=== PATIENT | female | born 1950 | race Caucasian/White ===

== ENCOUNTER 2022-12-06 12:26 | Inpatient (IN) ==
[2022-12-06 13:13] LABS: POC Calcium, Ionized 1.3 (1.16-1.32); POC Creatinine 1.3 (0.6-1.2); POC Potassium 4.7 (3.3-5.1)
--- NOTE | 2022-12-06 13:19 | XRay Report ---
CLINICAL INFORMATION: Dyspnea COMPARISON: 04/07/2020 TECHNIQUE: Portable FINDINGS: The heart size, mediastinum and pulmonary vessels are unremarkable. Mild right basilar atelectasis noted.. There are no effusions. The bones and soft tissues are within normal limits. IMPRESSION: Mild right basilar atelectasis. Interpreted and Authenticated by: Hector Rueda 12/06/22
[2022-12-06] MEDS ORDERED: methylPREDNISolone SOD SUCC 125 MG/2 ML VIAL IV ONE (13:49)
--- NOTE | 2022-12-06 13:53 | Emergency Department Note ---
SOB HPI General Chief Complaint: Shortness of Breath/Dyspnea Stated Complaint: shortness of breath Time Seen by Provider: 12/06/22 12:47 Source: patient and EMS Mode of arrival: EMS Limitations: no limitations History of Present Illness HPI Narrative: 72-year-old female with history of COPD on nocturnal oxygen, FREDDIE, ongoing tobacco use, chronic pain on methadone 60 mg a day, T2DM, CKD stage IV, peripheral vascular disease on clopidogrel, hypertension, bipolar/anxiety disorder presents to the ER via EMS for acute shortness of breath. The patient states that she was cleaning her home with bleach and Lysol and inhaled fumes and became immediately short of breath. She met EMS out in her driveway where her saturations were noted to be in the mid 80s. They gave her [address] DuoNeb treatments [address] way over and she is feeling only slightly improved. Patient states that she takes a daily inhaler twice a day plus as needed albuterol as her home inhaler use. She denies worsening cough, fever/chills/sweats. States that she was feeling well up until this morning when she had exposure to the cleaning agents. Related Data Home Medications Medication Instructions Recorded Confirmed clopidogrel 75 mg tablet 75 mg PO HS 04/15/15 12/06/22 levothyroxine 25 mcg tablet 25 mcg PO DAILY 04/15/15 12/06/22 (Levoxyl) alprazolam 0.25 mg tablet 1 mg PO BID 10/22/21 12/06/22 atorvastatin 20 mg tablet 20 mg PO HS 10/22/21 12/06/22 exenatide microspheres 2 mg/0.85 2 mg subcut QWEEK 10/22/21 12/06/22 mL subcutaneous auto-injector (Cristal Cristobal) metformin 500 mg tablet 1,500 mg PO 1700 10/22/21 12/06/22 telmisartan 40 mg tablet 20 mg PO 1700 10/22/21 12/06/22 cholecalciferol (vitamin D3) 50 50 mcg PO QDAY 07/15/22 12/06/22 mcg (2,000 unit) capsule (Vitamin D3) metformin 500 mg tablet 500 mg PO QDAY 07/15/22 12/06/22 quetiapine 25 mg tablet 150 mg PO QHS 07/21/22 12/06/22 budesonide 160 mcg-glycopyr 9 2 inh inhalation BID 10/21/22 12/06/22 mcg-formot 4.8 mcg/actuation HFA inhaler (Breztri Aerosphere) lamotrigine 200 mg tablet 200 mg PO BID 12/06/22 12/06/22 (Lamictal) Previous Rx's Medication Instructions Recorded fluticasone propionate 50 1 spray intranasal BID #16 grams 07/21/22 mcg/actuation nasal spray,suspension (Flonase Allergy Relief) ipratropium 0.5 mg-albuterol 3 mg 3 ml inhalation Q6H PRN shortness 07/21/22 (2.5 mg base)/3 mL nebulization of breath or wheezing #180 mL soln albuterol sulfate 90 mcg/actuation 2 puff inhalation QID PRN 10/21/22 aerosol inhaler shortness of breath or wheezing #8.5 grams methadone 10 mg tablet 20 mg PO TID #42 tabs 11/29/22 naloxone 4 mg/actuation nasal spray 1 spray intranasal .COMPLEX #2 ea 11/29/22 pregabalin 75 mg capsule See Rx Instructions PO BID #21 caps 11/29/22 Allergies Allergy/AdvReac Type Severity Reaction Status Date / Time olanzapine [From Zyprexa] Allergy Intermediate Unknown Verified 12/06/22 12:34 aspirin Allergy Mild Unknown Verified 12/06/22 12:34 cimetidine [From Tagamet] Allergy Mild Unknown Verified 12/06/22 12:34 codeine Allergy Mild Unknown Verified 12/06/22 12:34 misoprostol [From Cytotec] Allergy Mild Unknown Verified 12/06/22 12:34 NSAIDS (Non-Steroidal Allergy Mild Unknown Verified 12/06/22 12:34 Anti-Inflamma Oxaprozin [From Daypro] Allergy Mild Unknown Verified 12/06/22 12:34 Review of Systems ROS ROS Narrative: Narrative: All systems ED: reviewed and negative except as stated. PFSH Narrative Patient History Narrative: Narrative: Medical/Surgical/Family History All Active Problems (Updated 12/07/22 @ 03:50 by Lisset Jackson PA-C) Community acquired pneumonia (Acute) Acute exacerbation of chronic obstructive pulmonary disease (Acute) Hypoxia (Acute) Cough (Acute) History of vocal cord polypectomy (Chronic) Diabetic neuropathy (Acute) Chronic pain (Acute) Total knee replacement status (Acute) Rhinorrhea (Chronic) Rhinitis (Acute) COPD (chronic obstructive pulmonary disease) (Chronic) Atelectasis of right lung (Chronic) Elevated hemidiaphragm (Chronic) Shortness of breath (Chronic) Pulmonary collapse (Chronic) Pneumonia (Chronic) Admission for long-term (current) use of antiplatelets/antithrombotics (Chronic) Tobacco use (Chronic) Other constipation (Chronic) Onychomycosis (Chronic) Callus of foot (Chronic) Hallux valgus, bilateral (Chronic) Hyperkeratosis (Chronic) Bone spur of left foot (Chronic) Other instability, right foot (Chronic) Hammertoe (Chronic) Plantar flexed metatarsal (Chronic) Primary osteoarthritis, left ankle and foot (Chronic) Instability of right ankle joint (Chronic) Generalized anxiety disorder (Chronic) 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) Bipolar disorder, current episode depressed, moderate (Chronic) PVD (peripheral vascular disease) (Chronic) Vitamin D deficiency (Chronic) Pain in right shoulder (Chronic) Pain in joint of left knee (Chronic) Osteopenia (Chronic) Tardive dyskinesia (Chronic) Pain in right knee (Chronic) Fatty infiltration of liver (Chronic) FREDDIE (obstructive sleep apnea) (Chronic) Asthma (Chronic) Allergic rhinitis (Chronic) Bronchitis, mucopurulent recurrent (Chronic) Hypothyroidism (Chronic) Hyperlipemia, mixed (Chronic) Chronic kidney disease, stage 3a (Chronic) Hypertensive chronic kidney disease with stage 1 through stage 4 chronic kidney disease, or unspecified chronic kidney disease (Chronic) DM (diabetes mellitus), type 2 with peripheral vascular complications (Chronic) DM (diabetes mellitus), type 2 with renal complications (Chronic) Type 2 diabetes mellitus with diabetic polyneuropathy (Chronic) Other obesity due to excess calories (Chronic) Atherosclerosis of aorta (Chronic) Lumbosacral radiculopathy (Chronic) Radiculopathy of lumbar region (Chronic) Closed rib fracture (Chronic) Epistaxis (Chronic) Fracture of phalanx of great toe (Chronic) Cellulitis (Chronic) Absence seizure (Chronic) Spinal stenosis, lumbar (Chronic) care home (current) use of opiate analgesic (Chronic) Chronic pain (Chronic) Spondylosis without myelopathy or radiculopathy, lumbar region (Chronic) Radiculopathy, lumbar region (Chronic) Accidental drug ingestion (Chronic) Laceration of right forearm (Chronic) Medical History Absence seizure Accidental drug ingestion Admission for long-term (current) use of antiplatelets/antithrombotics Allergic rhinitis Asthma Atherosclerosis of aorta Bipolar disorder, current episode depressed, moderate Bone spur of left foot Bronchitis, mucopurulent recurrent Callus of foot Cellulitis Chronic kidney disease, stage 3a Chronic pain Closed rib fracture COPD (chronic obstructive pulmonary disease) Diabetic neuropathy DM (diabetes mellitus), type 2 with peripheral vascular complications DM (diabetes mellitus), type 2 with renal complications Epistaxis Fatty infiltration of liver Fracture of phalanx of great toe Generalized anxiety disorder Hallux valgus, bilateral Hammertoe Hyperkeratosis Hyperlipemia, mixed Hypertensive chronic kidney disease with stage 1 through stage 4 chronic kidney disease, or unspecified chronic kidney disease Hypothyroidism Instability of right ankle joint Laceration of right forearm care home (current) use of opiate analgesic Lumbosacral radiculopathy Onychomycosis FREDDIE (obstructive sleep apnea) Osteopenia Other constipation Other instability, right foot Other obesity due to excess calories 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 Pain in joint of left knee Pain in right knee Pain in right shoulder Plantar flexed metatarsal Pneumonia Primary osteoarthritis, left ankle and foot Pulmonary collapse PVD (peripheral vascular disease) Radiculopathy of lumbar region Radiculopathy, lumbar region Spinal stenosis, lumbar Spondylosis without myelopathy or radiculopathy, lumbar region Tardive dyskinesia Tobacco use Type 2 diabetes mellitus with diabetic polyneuropathy Vitamin D deficiency Surgical History History of arthroscopy of left knee History of cholecystectomy History of foot surgery Bilateral x7 History of myomectomy History of surgery LESI #2 L4-5 w/sed 05/24/2017 LESI #1 L4-5 w/sed 04/19/2017 History of vocal cord polypectomy (~2016) Family History Father Esophageal cancer Sister Colon cancer Grandfather Lung cancer Social History Smoking Status: Current every day smoker Alcohol Intake Frequency: does not drink Substance Use: does not use Exam Narrative Narrative: General: AOx3, NAD, nontoxic appearing. Pleasant and conversant. HEENT: Pupils are pinpoint, EOMI, normocephalic. Dry mucous membranes. Normal facies and edentulous. Chest: Symmetric, no pain to palpation Respiratory: Lungs with coarse breath sounds throughout. No crackles. No wheezes. No respiratory distress. Unlabored breathing. Heart: Regular rate and rhythm, no murmurs/clicks/rubs. Abdomen: Non-tender, Non distended Extremities: Warm and well perfused. No edema. DP 2+ bilaterally. No venous stasis. Neuro: No focal deficits. Cranial nerves II-XII grossly normal. Skin: Warm dry, no rashes or lesions, no cyanosis. Psych: Intoxicated mood and affect Heme/Lymph: Multiple bruises on the upper extremities and lower extremities. General Limitations: no limitations Course Course Course Narrative: 72-year-old female with history of COPD presents for hypoxia and shortness of breath. Reevaluation(s) Reevaluation #1: Obtain basic labs, chest x-ray DuoNebs as needed Supplemental O2 62.5 mg IV methylprednisolone x1 dose Check EKG Reevaluation #2: EKG shows sinus rhythm with a rate of 95 bpm. Patient has a lot of motion artifact. No obvious acute ST segment elevations to suggest acute coronary syndrome. QTc is 463 ms. Normal LA interval of 163 ms. White blood cell count is 19,200 with absolute neutrophil count of 16.58. Chest x-ray shows right lower lobe opacity that is read as atelectasis. No clear infiltrate. Procalcitonin 0.06. Time: 17:00 Reevaluation #3: Called to the bedside as patient was insisting on leaving to have a cigarette. She was uncooperative and refusing to put on her oxygen. She was extremely unsteady on her feet and oxygen saturations were 81% on room air. Patient th reatened to leave AMA and was walking out in her hospital gown with her IV in place. She was undeterrable, and for patient's safety I agreed to allow her to have a cigarette before her admission and accompanied her outside for safety. The patient subsequently became cooperative and agreeable to stay for admission. Additional Reevaluation(s): Patient is amendable to nicotine gum and patches Vital Signs Vital signs: Vital Signs Temperature 98.6 F 12/06/22 12:28 Pulse Rate 99 H 12/06/22 12:28 Respiratory Rate 20 12/06/22 12:28 Pulse Oximetry (%) 87 L 12/06/22 12:28 Oxygen Delivery Method Room Air 12/06/22 12:28 Temperature 97.4 F 12/06/22 20:02 Pulse Rate 74 12/07/22 00:04 Respiratory Rate 20 12/07/22 00:04 Blood Pressure 104/48 12/07/22 00:04 Pulse Oximetry (%) 91 12/07/22 00:04 Oxygen Delivery Method Oxymask 12/07/22 00:04 Oxygen Flow Rate (L/min) 3 12/07/22 00:04 MDM MDM Narrative Medical decision making narrative: Acute hypoxic respiratory failure Community acquired pneumonia Acute COPD exacerbation Tobacco use disorder Covid and influenza are negative. She was given IV ceftriaxone and oral 500 mg azithromycin as well as 62.5 mg IV methylprednisone. Supplemental O2 to keep sats >92%. I asked her to bring in her home inhaler and her methadone. She is agreeable to admission with the understanding that she cannot vape or smoke. Poison control was contacted and they have no additional recommendations to her current interventions. She has been accepted for admission. Thank you Dr. Vasquez. Lab Data 12/06/22 13:33 Labs: Lab Results 12/06/22 12/06/22 12/06/22 Range/Units 13:09 13:33 14:27 WBC 19.2 H (4.5-11.0) K/mcL RBC 4.26 (3.59-5.38) M/mcL Hgb 12.7 (11.2-15.7) g/dL Hct 39.8 (34.1-44.9) % POC Hct 40.0 (36-48) MCV 93.4 (80.0-100.0) fL MCH 29.8 (26.0-34.0) pg MCHC 31.9 (31.0-36.0) g/dL RDW 15.0 H (11.5-14.5) % Plt Count 263 (140-440) K/mcL MPV 9.5 (8.8-12.5) fL Immature Gran % (Auto) 0.9 H (0.0-0.5) % Neut % (Auto) 86.6 H (38.0-78.0) % Lymph % (Auto) 6.5 L (15.5-49.0) % [place] % (Auto) 4.7 (1.0-12.0) % Eos % (Auto) 0.5 (0.0-7.0) % Baso % (Auto) 0.8 (0.0-2.0) % Lymph # (Auto) 1.24 L (1.50-4.80) K/mcL [place] # (Auto) 0.91 H (0.10-0.90) K/mcL Eos # (Auto) 0.10 (0.00-0.70) K/mcL Baso # (Auto) 0.16 (0.00-0.30) K/mcL Immature Gran # 0.18 H (0.00-0.05) K/mcl Absolute Neutrophils 16.58 H (1.80-8.00) K/mcL POC VBG pH 7.28 L (7.32-7.42) POC VBG pCO2 at Temp 57.7 H (41-51) POC VBG pO2 55 H (25-40) POC VBG HCO3 26.9 (24-28) POC VBG Total CO2 29.0 (25-29) POC Venous O2 Sat 83.0 H (40-70) POC VBG Base Excess 0 (-2-2) VBG Lactic Acid 1.0 (0.5-2) POC Sodium 139 (133-145) POC Potassium 4.7 (3.3-5.1) POC Chloride 101 (96-108) POC Total CO2 29.0 (22-30) POC BUN 27 H (6-20) POC Creatinine 1.3 H (0.6-1.2) POC Glucose 285 H (70-105) POC WB Ioniz Calcium 1.30 (1.16-1.32) Procalcitonin (<0.10) ng/mL 12/06/22 Range/Units 15:00 WBC (4.5-11.0) K/mcL RBC (3.59-5.38) M/mcL Hgb (11.2-15.7) g/dL Hct (34.1-44.9) % POC Hct (36-48) MCV (80.0-100.0) fL MCH (26.0-34.0) pg MCHC (31.0-36.0) g/dL RDW (11.5-14.5) % Plt Count (140-440) K/mcL MPV (8.8-12.5) fL Immature Gran % (Auto) (0.0-0.5) % Neut % (Auto) (38.0-78.0) % Lymph % (Auto) (15.5-49.0) % [place] % (Auto) (1.0-12.0) % Eos % (Auto) (0.0-7.0) % Baso % (Auto) (0.0-2.0) % Lymph # (Auto) (1.50-4.80) K/mcL [place] # (Auto) (0.10-0.90) K/mcL Eos # (Auto) (0.00-0.70) K/mcL Baso # (Auto) (0.00-0.30) K/mcL Immature Gran # (0.00-0.05) K/mcl Absolute Neutrophils (1.80-8.00) K/mcL POC VBG pH (7.32-7.42) POC VBG pCO2 at Temp (41-51) POC VBG pO2 (25-40) POC VBG HCO3 (24-28) POC VBG Total CO2 (25-29) POC Venous O2 Sat (40-70) POC VBG Base Excess (-2-2) VBG Lactic Acid (0.5-2) POC Sodium (133-145) POC Potassium (3.3-5.1) POC Chloride (96-108) POC Total CO2 (22-30) POC BUN (6-20) POC Creatinine (0.6-1.2) POC Glucose (70-105) POC WB Ioniz Calcium (1.16-1.32) Procalcitonin 0.06 (<0.10) ng/mL ED POC Tests ED POC Tests: MG - Influenza A Negative MG - Influenza B Negative MG - SARS Antigen Negative Discharge Plan Patient/Caregiver Discharge Instructions Pt seen by DISTRICT SERVICE MANAGER/PA only: Yes Clinical Impression: Community acquired pneumonia, Acute exacerbation of chronic obstructive pulmonary disease, Hypoxia Patient Disposition: Xfer As Inpt ([facility]) Discharge Date/Time: 12/06/22 19:30
[2022-12-06 14:03] LABS: Basophils # (Auto) 0.16 K/mcL (0.00-0.30); Basophils % (Auto) 0.8 % (0.0-2.0); Eosinophils % (Auto) 0.5 % (0.0-7.0); Hematocrit 39.8 % (34.1-44.9); Hemoglobin 12.7 g/dL (11.2-15.7); Lymphocytes # (Auto) 1.24 K/mcL (1.50-4.80); Lymphocytes % (Auto) 6.5 % (15.5-49.0); Mean Cell Volume 93.4 fL (80.0-100.0); Mean Corpuscular HGB Conc 31.9 g/dL (31.0-36.0); Mean Platelet Volume 9.5 fL (8.8-12.5); Monocytes # (Auto) 0.91 K/mcL (0.10-0.90); Monocytes % (Auto) 4.7 % (1.0-12.0); Neutrophils % (Auto) 86.6 % (38.0-78.0); Platelet Count 263 K/mcL (140-440); RBC 4.26 M/mcL (3.59-5.38); WBC 19.2 K/mcL (4.5-11.0)
[2022-12-06] MEDS ORDERED: cefTRIAXone 1 GM VIAL IV ONE (15:38)
[2022-12-06] MEDS ORDERED: AZITHROMYCIN 250 MG TABLET PO ONE (15:40)
[2022-12-06] MEDS ORDERED: IPRATROPIUM/ALBUTEROL 3 ML AMPUL.NEB NEB ONE ×2 (15:52→20:13)
--- NOTE | 2022-12-06 17:51 | Internal Med History&Physical ---
HPI History of Present Illness Patient information: Note initiated : 12/06/22 at 5:51 pm Service Date, if different from initiated Date: [] Patient: Alex Clancy a 72 y/o F admitted on for shortness of breath. Chief Complaint: [] Chief complaint: SOB History of present illness: Ms. Clancy is a 72 year old F with COPD on home O2, FREDDIE with CPAP, on chronically large doses of methadone, psychiatric illness, DM. She presented with SOB. Workup in the ER notable for WBC 19, wheezing, CXR with basilar infiltrate. Pt was given steroids, NBT, Abx. Admission was requested. Constitutional Constitutional: Present as per HPI EENT Eyes: Present as per HPI Cardiovascular Cardiovascular: Present as per HPI Respiratory Respiratory: Present as per HPI Gastrointestinal Gastrointestinal: Present as per HPI Genitourinary Genitourinary: Present as per HPI Musculoskeletal Musculoskeletal: Present as per HPI Integumentary Integumentary: Present as per HPI Neurological Neurological: Present as per HPI PFSH PFSH All Active Problems Cough (Acute) History of vocal cord polypectomy (Chronic) Diabetic neuropathy (Acute) Chronic pain (Acute) Total knee replacement status (Acute) Rhinorrhea (Chronic) Rhinitis (Acute) COPD (chronic obstructive pulmonary disease) (Chronic) Atelectasis of right lung (Chronic) Elevated hemidiaphragm (Chronic) Shortness of breath (Chronic) Pulmonary collapse (Chronic) Pneumonia (Chronic) Admission for long-term (current) use of antiplatelets/antithrombotics (Chronic) Tobacco use (Chronic) Other constipation (Chronic) Onychomycosis (Chronic) Callus of foot (Chronic) Hallux valgus, bilateral (Chronic) Hyperkeratosis (Chronic) Bone spur of left foot (Chronic) Other instability, right foot (Chronic) Hammertoe (Chronic) Plantar flexed metatarsal (Chronic) Primary osteoarthritis, left ankle and foot (Chronic) Instability of right ankle joint (Chronic) Generalized anxiety disorder (Chronic) 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) Bipolar disorder, current episode depressed, moderate (Chronic) PVD (peripheral vascular disease) (Chronic) Vitamin D deficiency (Chronic) Pain in right shoulder (Chronic) Pain in joint of left knee (Chronic) Osteopenia (Chronic) Tardive dyskinesia (Chronic) Pain in right knee (Chronic) Fatty infiltration of liver (Chronic) FREDDIE (obstructive sleep apnea) (Chronic) Asthma (Chronic) Allergic rhinitis (Chronic) Bronchitis, mucopurulent recurrent (Chronic) Hypothyroidism (Chronic) Hyperlipemia, mixed (Chronic) Chronic kidney disease, stage 3a (Chronic) Hypertensive chronic kidney disease with stage 1 through stage 4 chronic kidney disease, or unspecified chronic kidney disease (Chronic) DM (diabetes mellitus), type 2 with peripheral vascular complications (Chronic) DM (diabetes mellitus), type 2 with renal complications (Chronic) Type 2 diabetes mellitus with diabetic polyneuropathy (Chronic) Other obesity due to excess calories (Chronic) Atherosclerosis of aorta (Chronic) Lumbosacral radiculopathy (Chronic) Radiculopathy of lumbar region (Chronic) Closed rib fracture (Chronic) Epistaxis (Chronic) Fracture of phalanx of great toe (Chronic) Cellulitis (Chronic) Absence seizure (Chronic) Spinal stenosis, lumbar (Chronic) 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) Chronic pain (Chronic) Spondylosis without myelopathy or radiculopathy, lumbar region (Chronic) Radiculopathy, lumbar region (Chronic) Accidental drug ingestion (Chronic) Laceration of right forearm (Chronic) Medical History Absence seizure Accidental drug ingestion Admission for long-term (current) use of antiplatelets/antithrombotics Allergic rhinitis Asthma Atherosclerosis of aorta Bipolar disorder, current episode depressed, moderate Bone spur of left foot Bronchitis, mucopurulent recurrent Callus of foot Cellulitis Chronic kidney disease, stage 3a Chronic pain Closed rib fracture COPD (chronic obstructive pulmonary disease) Diabetic neuropathy DM (diabetes mellitus), type 2 with peripheral vascular complications DM (diabetes mellitus), type 2 with renal complications Epistaxis Fatty infiltration of liver Fracture of phalanx of great toe Generalized anxiety disorder Hallux valgus, bilateral Hammertoe Hyperkeratosis Hyperlipemia, mixed Hypertensive chronic kidney disease with stage 1 through stage 4 chronic kidney disease, or unspecified chronic kidney disease Hypothyroidism Instability of right ankle joint Laceration of right forearm intermediate (current) use of opiate analgesic Lumbosacral radiculopathy Onychomycosis FREDDIE (obstructive sleep apnea) Osteopenia Other constipation Other instability, right foot Other obesity due to excess calories 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 Pain in joint of left knee Pain in right knee Pain in right shoulder Plantar flexed metatarsal Pneumonia Primary osteoarthritis, left ankle and foot Pulmonary collapse PVD (peripheral vascular disease) Radiculopathy of lumbar region Radiculopathy, lumbar region Spinal stenosis, lumbar Spondylosis without myelopathy or radiculopathy, lumbar region Tardive dyskinesia Tobacco use Type 2 diabetes mellitus with diabetic polyneuropathy Vitamin D deficiency Surgical History History of arthroscopy of left knee History of cholecystectomy History of foot surgery Bilateral x7 History of myomectomy History of surgery LESI #2 L4-5 w/sed 05/24/2017 LESI #1 L4-5 w/sed 04/19/2017 History of vocal cord polypectomy (~2016) Family History Father Esophageal cancer Sister Colon cancer Grandfather Lung cancer Social History marital status: occupational status: disabled physical activity: walking frequency: 3-4 times per week smoking status: Current every day smoker alcohol intake frequency: does not drink substance use type: does not use MEDS/ALLERGIES Home Medications and Allergies Home Medications Medication Instructions Recorded Confirmed Type clopidogrel 75 mg tablet 75 mg PO DAILY 04/15/15 11/29/22 History levothyroxine 25 mcg tablet 25 mcg PO DAILY 04/15/15 11/29/22 History (Levoxyl) alprazolam 0.25 mg tablet 1 mg PO BID 10/22/21 11/29/22 History atorvastatin 20 mg tablet 20 mg PO HS 10/22/21 11/29/22 History exenatide microspheres 2 mg/0.85 2 mg subcut QWEEK 10/22/21 11/29/22 History mL subcutaneous auto-injector (Cristal Cristobal) metformin 500 mg tablet 1,500 mg PO 1700 10/22/21 11/29/22 History telmisartan 40 mg tablet 20 mg PO 1700 10/22/21 11/29/22 History cholecalciferol (vitamin D3) 50 50 mcg PO QDAY 07/15/22 11/29/22 History mcg (2,000 unit) capsule (Vitamin D3) lamotrigine 150 mg tablet 150 mg PO BID 07/15/22 11/29/22 History (Lamictal) metformin 500 mg tablet 500 mg PO QDAY 07/15/22 11/29/22 History fluticasone propionate 50 1 spray intranasal BID #16 grams 07/21/22 11/29/22 Rx mcg/actuation nasal spray,suspension (Flonase Allergy Relief) ipratropium 0.5 mg-albuterol 3 mg 3 ml inhalation Q6H PRN shortness 07/21/22 11/29/22 Rx (2.5 mg base)/3 mL nebulization of breath or wheezing #180 mL soln quetiapine 25 mg tablet 150 mg PO QDAY 07/21/22 11/29/22 History docusate sodium 100 mg capsule 100 mg PO BID #60 caps 07/22/22 11/29/22 Rx albuterol sulfate 90 mcg/actuation 2 puff inhalation QID PRN 10/21/22 11/29/22 Rx aerosol inhaler shortness of breath or wheezing #8.5 grams budesonide 160 mcg-glycopyr 9 2 inh inhalation BID 10/21/22 11/29/22 History mcg-formot 4.8 mcg/actuation HFA inhaler (Breztri Aerosphere) Wedge Pllow #1 ea 10/23/22 11/29/22 Rx methadone 10 mg tablet 20 mg PO TID #42 tabs 11/29/22 11/29/22 Rx naloxone 4 mg/actuation nasal spray 1 spray intranasal .COMPLEX #2 ea 11/29/22 11/29/22 Rx pregabalin 75 mg capsule See Rx Instructions PO BID #21 caps 11/29/22 11/29/22 Rx Allergies Allergy/AdvReac Type Severity Reaction Status Date / Time olanzapine [From Zyprexa] Allergy Intermediate Unknown Verified 12/06/22 12:34 aspirin Allergy Mild Unknown Verified 12/06/22 12:34 cimetidine [From Tagamet] Allergy Mild Unknown Verified 12/06/22 12:34 codeine Allergy Mild Unknown Verified 12/06/22 12:34 misoprostol [From Cytotec] Allergy Mild Unknown Verified 12/06/22 12:34 NSAIDS (Non-Steroidal Allergy Mild Unknown Verified 12/06/22 12:34 Anti-Inflamma Oxaprozin [From Daypro] Allergy Mild Unknown Verified 12/06/22 12:34 EXAM Constitutional Vitals: Temp Pulse Resp BP Pulse Ox O2 Del Method O2 Flow Rate 98.6 F 88 20 139/82 91 Nasal Cannula 1 12/06/22 12:28 12/06/22 15:55 12/06/22 12:28 12/06/22 15:37 12/06/22 15:55 12/06/22 13:15 12/06/22 13:15 General appearance: no acute distress Head Head exam: Present atraumatic, normal inspection and normocephalic ENT ENT exam: Present mucous membranes moist Respiratory Respiratory exam: Present decreased breath sounds and wheezes Cardiovascular Cardiovascular exam: Present normal rate and rhythm GI/Abdominal GI/Abdominal exam: Present normal bowel sounds and soft; Absent distended Neurological Exam Neurological exam: Present CN II-XII intact and oriented X3 DATA Data Completed and Pending Labs: Labs from last 24 hours 12/06/22 12/06/22 12/06/22 15:00 14:27 13:33 WBC 19.2 H RBC 4.26 Hgb 12.7 Hct 39.8 POC Hct MCV 93.4 MCH 29.8 MCHC 31.9 RDW 15.0 H Plt Count 263 MPV 9.5 Immature Gran % (Auto) 0.9 H Neut % (Auto) 86.6 H Lymph % (Auto) 6.5 L [place] % (Auto) 4.7 Eos % (Auto) 0.5 Baso % (Auto) 0.8 Lymph # (Auto) 1.24 L [place] # (Auto) 0.91 H Eos # (Auto) 0.10 Baso # (Auto) 0.16 Immature Gran # 0.18 H Absolute Neutrophils 16.58 H POC VBG pH 7.28 L POC VBG pCO2 at Temp 57.7 H POC VBG pO2 55 H POC VBG HCO3 26.9 POC VBG Total CO2 29.0 POC Venous O2 Sat 83.0 H POC VBG Base Excess 0 VBG Lactic Acid 1.0 POC Sodium POC Potassium POC Chloride POC Total CO2 POC BUN POC Creatinine POC Glucose POC WB Ioniz Calcium Procalcitonin 0.06 12/06/22 13:09 WBC RBC Hgb Hct POC Hct 40.0 MCV MCH MCHC RDW Plt Count MPV Immature Gran % (Auto) Neut % (Auto) Lymph % (Auto) [place] % (Auto) Eos % (Auto) Baso % (Auto) Lymph # (Auto) [place] # (Auto) Eos # (Auto) Baso # (Auto) Immature Gran # Absolute Neutrophils POC VBG pH POC VBG pCO2 at Temp POC VBG pO2 POC VBG HCO3 POC VBG Total CO2 POC Venous O2 Sat POC VBG Base Excess VBG Lactic Acid POC Sodium 139 POC Potassium 4.7 POC Chloride 101 POC Total CO2 29.0 POC BUN 27 H POC Creatinine 1.3 H POC Glucose 285 H POC WB Ioniz Calcium 1.30 Procalcitonin A/P Assessment and plan (1) COPD (chronic obstructive pulmonary disease): Assessment and plan: - AECOPD - Methylprednisolone 40 mg IV q8 - DuoNeb - Azithromycin Status: Chronic Qualifiers: COPD type: chronic bronchitis Chronic bronchitis type: mucopurulent Qualified Code(s): J41.1 - Mucopurulent chronic bronchitis (2) Pneumonia: Assessment and plan: - PCT pending - cultures pending - ceftriaxone and azithromycin Status: Chronic (3) Bipolar disorder, current episode depressed, moderate: Assessment and plan: - continue quetiapine and lamotrigine Status: Chronic (4) Type 2 diabetes mellitus with diabetic polyneuropathy: Assessment and plan: - SSI - continue pregabalin Status: Chronic Time Spent With Patient Time: Total time spent is greater than 50% in coordination of care (as documented) at patient's floor/unit and/or counseling patient:
[2022-12-06] MEDS ORDERED: NICOTINE POLACRILEX 2 MG GUM CHEW/PARK PRN (17:59)
[2022-12-06] MEDS ORDERED: NICOTINE 21 MG PATCH TOPICAL ONE (18:00)
[2022-12-06] MEDS ORDERED: LORazepam 0.5 MG TABLET PO ONE (18:01)
[2022-12-06] MEDS ORDERED: DEXTROSE 50% 50 ML VIAL IV PRN (19:33)
[2022-12-06] MEDS ORDERED: DEXTROSE 31 GM ORAL.SUSP PO PRN (19:33)
[2022-12-06] MEDS ORDERED: ACETAMINOPHEN 325 MG TABLET PO PRN (19:33)
[2022-12-06] MEDS ORDERED: ONDANSETRON 4 MG/2 ML VIAL IV PRN (19:33)
[2022-12-06] MEDS: IPRATROPIUM/ALBUTEROL 3 ML AMPUL.NEB NEB SCH ×2 (20:13→23:08)
[2022-12-06] MEDS: lamoTRIgine 100 MG TABLET PO SCH (20:29)
[2022-12-06] MEDS: ALPRAZolam 0.5 MG TABLET PO SCH (20:29)
[2022-12-06] MEDS: DOCUSATE SODIUM 100 MG CAPSULE PO SCH (20:30)
[2022-12-06] MEDS ORDERED: SENNOSIDES 1 TABLET PO SCH (21:00)
[2022-12-06] MEDS ORDERED: lamoTRIgine 100 MG TABLET PO SCH (21:00)
[2022-12-06] MEDS ORDERED: ATORVASTATIN 20 MG TABLET PO SCH (21:00)
[2022-12-06] MEDS ORDERED: METHADONE 5 MG TABLET PO SCH (21:00)
[2022-12-06] MEDS ORDERED: QUEtiapine 100 MG TABLET PO SCH (21:00)
[2022-12-06] MEDS ORDERED: PREGABALIN 75 MG CAPSULE PO SCH (21:00)
[2022-12-06] MEDS: INSULIN LISPRO 1 UNIT/0.01 ML UNIT SQ SCH (21:09)
[2022-12-06] MEDS: methylPREDNISolone SOD SUCC 40 MG/ML VIAL IV SCH (22:53)
[2022-12-06] MEDS: 0.9 % SODIUM CHLORIDE 10 ML SYRINGE IV SCH (22:53)
[2022-12-07] MEDS: methylPREDNISolone SOD SUCC 40 MG/ML VIAL IV SCH ×2 (06:06→13:53)
[2022-12-07] MEDS: 0.9 % SODIUM CHLORIDE 10 ML SYRINGE IV SCH ×2 (06:07→13:53)
[2022-12-07 07:11] LABS: Blood Urea Nitrogen 32 mg/dL (8-23); Calcium 9.4 mg/dL (8.6-10.4); Carbon Dioxide 24 mmol/L (22-30); Chloride 97 mmol/L (96-108); Glomerular Filtration Rate 41; Glucose 342 mg/dL (70-105)
[2022-12-07 07:19] LABS: Basophils # (Auto) 0.04 K/mcL (0.00-0.30); Basophils % (Auto) 0.4 % (0.0-2.0); Eosinophils # (Auto) 0 K/mcL (0.00-0.70); Eosinophils % (Auto) 0 % (0.0-7.0); Hematocrit 35.5 % (34.1-44.9); Hemoglobin 11.2 g/dL (11.2-15.7); Lymphocytes # (Auto) 1.23 K/mcL (1.50-4.80); Lymphocytes % (Auto) 10.8 % (15.5-49.0); Mean Cell Volume 93.9 fL (80.0-100.0); Mean Corpuscular HGB Conc 31.5 g/dL (31.0-36.0); Mean Platelet Volume 9.9 fL (8.8-12.5); Monocytes % (Auto) 3.5 % (1.0-12.0); Neutrophils % (Auto) 84.4 % (38.0-78.0); Platelet Count 209 K/mcL (140-440); RBC 3.78 M/mcL (3.59-5.38); Red Cell Distribution Width 14.8 % (11.5-14.5); WBC 11.3 K/mcL (4.5-11.0)
[2022-12-07] MEDS ORDERED: LEVOTHYROXINE 25 MCG TABLET PO SCH (07:30)
[2022-12-07] MEDS: IPRATROPIUM/ALBUTEROL 3 ML AMPUL.NEB NEB SCH ×2 (07:39→11:54)
[2022-12-07] MEDS: INSULIN LISPRO 1 UNIT/0.01 ML UNIT SQ SCH ×2 (08:49→12:11)
[2022-12-07] MEDS ORDERED: ENOXAPARIN 40 MG/0.4 ML SYRINGE SQ SCH (09:00)
[2022-12-07] MEDS ORDERED: cefTRIAXone 1 GM in DEXTROSE 5% IN WATER 50 ML IV SCH (09:00)
[2022-12-07] MEDS ORDERED: AZITHROMYCIN 500 MG in DEXTROSE 5% IN WATER 250 ML IV SCH (09:00)
[2022-12-07] MEDS ORDERED: QUEtiapine 100 MG TABLET PO SCH (09:00)
[2022-12-07] MEDS ORDERED: PREGABALIN 75 MG CAPSULE PO SCH (09:00)
[2022-12-07] MEDS ORDERED: cefTRIAXone 1 GM VIAL IV SCH (09:00)
[2022-12-07] MEDS ORDERED: CLOPIDOGREL 75 MG TABLET PO SCH (09:00)
[2022-12-07] MEDS ORDERED: ALPRAZolam 0.5 MG TABLET PO SCH (09:01)
[2022-12-07] MEDS: DOCUSATE SODIUM 100 MG CAPSULE PO SCH (09:12)
[2022-12-07] MEDS: lamoTRIgine 100 MG TABLET PO SCH (09:13)
[2022-12-07] MEDS: METHADONE 5 MG TABLET PO SCH ×2 (09:13→13:52)
[2022-12-07] MEDS: ALPRAZolam 0.5 MG TABLET PO SCH (09:29)
--- NOTE | 2022-12-07 10:28 | Internal Med Progress Note ---
SUBJECTIVE Subjective Patient information: Note initiated : 12/07/22 at 10:24 am Service Date, if different from initiated Date: [] Patient: Alex Clancy a 72 y/o F admitted on 12/06/22 for shortness of breath. Chief Complaint: [] Interval history: Ms. Clancy is a 72 year old F with COPD on home O2, FREDDIE with CPAP, on chronically large doses of methadone, psychiatric illness, DM. She presented with SOB. Workup in the ER notable for WBC 19, wheezing, CXR with basilar infiltrate. Pt was given steroids, NBT, Abx. Admission was requested. Procalcitonin was 0.06. Dec 07, WBC improved to 11.3. Pt oversedated this morning. Doses of methadone, quetiapine, pregabalin, benzos all reduced. Constitutional Vitals: Vital Signs Temp Pulse Resp BP Pulse Ox O2 Del Method O2 Flow Rate 97.3 F 65 16 102/49 96 CPAP 5 12/07/22 08:00 12/07/22 08:00 12/07/22 08:00 12/07/22 08:00 12/07/22 08:00 12/07/22 08:20 12/07/22 08:20 Period Temp Pulse Resp BP Sys/Ortiz Pulse Ox O2 Del Method O2 Flow Rate Last 24 Hr 97.3 F-98.6 F 62-102 12-24 102-151/48-124 87-97 CPAP-Room Air 1-5 Intake and Output 12/06/22 12/07/22 12/07/22 19:59 03:59 11:59 Intake Total 600 Output Total 300 100 Balance -300 -100 600 Weight 69.4 kg 84.55 kg Intake & Output: Intake & Output 12/06/22 12/07/22 12/07/22 19:59 03:59 11:59 Intake Total 600 Output Total 300 100 Balance -300 -100 600 Weight 69.4 kg 84.55 kg Intake: IV 250 Zithromax 500 mg In Dextrose 5% 250 in Water 250 ml @ 250 mls/hr IV DAILY [facility] Rx#:[id number] Oral 350 Output: Void Amount 300 100 Other: Meal Bowl of Ice Cream Percent of Meal Consumed 100% Feeding Ability Independent Urine Appearance Clear Clear Urine Color Dark Yellow Yellow Urine Odor Normal General appearance: morbidly obese and no acute distress Head Head exam: Present atraumatic and normal inspection ENT ENT exam: Present mucous membranes moist Respiratory Respiratory exam: Present decreased breath sounds and wheezes; Absent accessory muscle use Cardiovascular Cardiovascular exam: Present normal rate and rhythm GI/Abdominal GI/Abdominal exam: Present normal bowel sounds and soft Neurological Exam Neurological exam: Present CN II-XII intact and oriented X3 OBJ DATA Labs 12/07/22 05:54 12/07/22 05:54 Labs: Abnormal Lab Results 12/07/22 12/07/22 12/06/22 05:54 05:54 14:27 WBC 11.3 H RDW 14.8 H Immature Gran % (Auto) 0.9 H Neut % (Auto) 84.4 H Lymph % (Auto) 10.8 L Lymph # (Auto) 1.23 L [place] # (Auto) Immature Gran # 0.10 H Absolute Neutrophils 9.57 H POC VBG pH 7.28 L POC VBG pCO2 at Temp 57.7 H POC VBG pO2 55 H POC Venous O2 Sat 83.0 H Potassium 5.4 H POC BUN BUN 32 H Creatinine 1.3 H POC Creatinine Glucose 342 H POC Glucose 12/06/22 12/06/22 13:33 13:09 WBC 19.2 H RDW 15.0 H Immature Gran % (Auto) 0.9 H Neut % (Auto) 86.6 H Lymph % (Auto) 6.5 L Lymph # (Auto) 1.24 L [place] # (Auto) 0.91 H Immature Gran # 0.18 H Absolute Neutrophils 16.58 H POC VBG pH POC VBG pCO2 at Temp POC VBG pO2 POC Venous O2 Sat Potassium POC BUN 27 H BUN Creatinine POC Creatinine 1.3 H Glucose POC Glucose 285 H Meds: Medications Acetaminophen (Acetaminophen 325 Mg Tablet) 650 mg PO Q6HP PRN; Protocol PRN Reason: Per Pain Protocol/Fever > 101 Albuterol/Ipratropium (Ipratropium/Albuterol 3 Ml Ampul.Neb) [id number] [facility] Last Admin: 12/07/22 07:39 Dose: 3 ml Alprazolam (Alprazolam 0.5 Mg Tablet) 0.[address] [facility] Atorvastatin Calcium (Atorvastatin 20 Mg Tablet) 20 mg PO [facility] Last Admin: 12/06/22 20:28 Dose: 20 mg Ceftriaxone Sodium (Ceftriaxone 1 Gm Vial) [address] [facility] Last Admin: 12/07/22 08:49 Dose: 1 gm Clopidogrel Bisulfate (Clopidogrel 75 Mg Tablet) [address] [facility] Last Admin: 12/07/22 09:13 Dose: Not Given Dextrose (Dextrose 50% 50 Ml Vial) 0 ml IV UD PRN PRN Reason: Per Sliding Scale Diagnostic Test (Pha) (Accu-Chek 1 Each Strip) 1 each FS [facility] Last Admin: 12/07/22 08:14 Dose: 1 each Docusate Sodium (Docusate Sodium 100 Mg Capsule) [address] [facility] Last Admin: 12/07/22 09:12 Dose: Not Given Enoxaparin Sodium (Enoxaparin 40 Mg/0.4 Ml Syringe) [address] [facility] Last Admin: 12/07/22 08:49 Dose: 40 mg Glucose (Dextrose 31 Gm Oral.Susp) 15 gm PO PRN PRN PRN Reason: Hypoglycemia Azithromycin 500 mg/ Dextrose 250 mls @ 250 mls/hr IV DAILY [facility]; Protocol Stop: 12/08/22 09:59 Last Infusion: 12/07/22 10:04 Dose: Infused Insulin Human Lispro (Insulin Lispro 1 Unit/0.01 Ml Unit) 0 unit SQ [facility]; Protocol Last Admin: 12/07/22 08:49 Dose: 12 units Lamotrigine (Lamotrigine 100 Mg Tablet) [address] [facility] Last Admin: 12/07/22 09:13 Dose: Not Given Levothyroxine Sodium (Levothyroxine 25 Mcg Tablet) [address] [facility] Last Admin: 12/07/22 09:14 Dose: Not Given Losartan Potassium (Losartan 50 Mg Tablet) [address] [facility] Methadone HCl (Methadone 5 Mg Tablet) [address] [facility] Last Admin: 12/07/22 09:13 Dose: Not Given Methylprednisolone Sodium Succinate (Methylprednisolone Sod Succ 40 Mg/Ml Vial) [address] [facility] Last Admin: 12/07/22 06:06 Dose: 40 mg Nicotine Polacrilex (Nicotine Polacrilex 2 Mg Gum) 2 mg CHEW/PARK Q4HP PRN PRN Reason: Withdrawl Symptoms Ondansetron HCl (Ondansetron 4 Mg/2 Ml Vial) 4 mg IV Q6HP PRN PRN Reason: Nausea And Vomiting Pregabalin (Pregabalin 75 Mg Capsule) [address] [facility] Last Admin: 12/07/22 09:13 Dose: Not Given Quetiapine Fumarate (Quetiapine 25 Mg Tablet) 25 mg PO [facility] Senna (Sennosides 1 Tablet) 2 tab PO [facility] Last Admin: 12/06/22 20:29 Dose: 2 tab Sodium Chloride (0.9 % Sodium Chloride 10 Ml Syringe) [address] [facility] Last Admin: 12/07/22 06:07 Dose: 10 ml A/P Assessment and plan (1) COPD (chronic obstructive pulmonary disease): Assessment and plan: - AECOPD - Methylprednisolone 40 mg IV q8 - DuoNeb - Azithromycin Status: Chronic Qualifiers: COPD type: chronic bronchitis Chronic bronchitis type: mucopurulent Qualified Code(s): J41.1 - Mucopurulent chronic bronchitis (2) Pneumonia: Assessment and plan: - PCT 0.06 - cultures pending - ceftriaxone and azithromycin Status: Chronic (3) Bipolar disorder, current episode depressed, moderate: Assessment and plan: - continue quetiapine and lamotrigine but dose of quetiapine reduced due to oversedation Status: Chronic (4) Type 2 diabetes mellitus with diabetic polyneuropathy: Assessment and plan: - SSI - continue pregabalin, dose reduced due to oversedation Status: Chronic Time Spent With Patient Time: Total time spent is greater than 50% in coordination of care (as documented) at patient's floor/unit and/or counseling patient: QUALITY Stroke Symptom Onset Unknown: No VTE Deep Vein Thrombosis/Pulmonary Embolism Present on Admission: No
--- NOTE | 2022-12-07 13:48 | Internal Med Progress Note ---
SUBJECTIVE Subjective Patient information: Note initiated : 12/07/22 at 1:44 pm Service Date, if different from initiated Date: [] Patient: Alex Clancy a 72 y/o F admitted on 12/06/22 for shortness of breath. Chief Complaint: [] Interval history: Ms. Clancy is a 72 year old F with COPD on home O2, FREDDIE with CPAP, on chronically large doses of methadone, psychiatric illness, DM. She presented with SOB. Workup in the ER notable for WBC 19, wheezing, CXR with basilar infiltrate. Pt was given steroids, NBT, Abx. Admission was requested. Procalcitonin was 0.06. Dec 07, WBC improved to 11.3. Pt oversedated this morning. Doses of methadone, quetiapine, pregabalin, benzos all reduced. 12/08 Review of Systems: denies headache/fever/chills/nausea/vomiting/chest or abdominal pain/cough/dyspnea/diarrhea. Otherwise see above. PHYSICAL EXAM: General: Alert, Awake, No acute Distress, obese Eyes/N/T: EOMI, no scleral icterus, Head/Neck: neck supple, full ROM, CV: RRR, No murmurs, Pulm: Clear b/l, no wheezing/rhonchi/rales, no respiratory distress Abd: soft, nontender, +BS x4 Ext: no clubbing/cyanosis/edema, nontender Neuro: Alert, no focal deficits, moves all extremities, sensations intact b/l upper/lower Psychiatric: Skin: warm/dry, normal color Constitutional Vitals: Vital Signs Temp Pulse Resp BP Pulse Ox O2 Del Method O2 Flow Rate 97.8 F 70 18 109/58 94 Oxymask 3 12/07/22 12:00 12/07/22 12:00 12/07/22 12:00 12/07/22 12:00 12/07/22 12:00 12/07/22 12:00 12/07/22 12:00 Period Temp Pulse Resp BP Sys/Ortiz Pulse Ox O2 Del Method O2 Flow Rate Last 24 Hr 97.3 F-97.8 F 62-93 12-24 102-151/48-109 89-97 CPAP-Oxymask 3-5 Intake and Output 12/07/22 12/07/22 12/07/22 03:59 11:59 19:59 Intake Total 600 100 Output Total 100 350 Balance -100 250 100 Weight 84.55 kg 84.55 kg Patient Weight 12/08/22 03:59 Weight 84.55 kg Intake & Output: Intake & Output 12/07/22 12/07/22 12/07/22 03:59 11:59 19:59 Intake Total 600 100 Output Total 100 350 Balance -100 250 100 Weight 84.55 kg 84.55 kg Intake: IV 250 Zithromax 500 mg In Dextrose 5% 250 in Water 250 ml @ 250 mls/hr IV DAILY [facility] Rx#:[id number] Oral 350 100 Output: Void Amount 100 350 Other: Meal Bowl of Ice Cream Dinner Percent of Meal Consumed 100% 75% Feeding Ability Independent Assist with Tray Set Up Urine Appearance Clear Clear Urine Color Yellow Yellow Stool Size Small Stool Color Brown Stool Consistency Soft Formed # Bowel Movements 1 OBJ DATA Labs 12/07/22 05:54 12/07/22 05:54 Labs: Abnormal Lab Results 12/07/22 12/07/22 12/06/22 05:54 05:54 14:27 WBC 11.3 H RDW 14.8 H Immature Gran % (Auto) 0.9 H Neut % (Auto) 84.4 H Lymph % (Auto) 10.8 L Lymph # (Auto) 1.23 L [place] # (Auto) Immature Gran # 0.10 H Absolute Neutrophils 9.57 H POC VBG pH 7.28 L POC VBG pCO2 at Temp 57.7 H POC VBG pO2 55 H POC Venous O2 Sat 83.0 H Potassium 5.4 H POC BUN BUN 32 H Creatinine 1.3 H POC Creatinine Glucose 342 H POC Glucose 12/06/22 12/06/22 13:33 13:09 WBC 19.2 H RDW 15.0 H Immature Gran % (Auto) 0.9 H Neut % (Auto) 86.6 H Lymph % (Auto) 6.5 L Lymph # (Auto) 1.24 L [place] # (Auto) 0.91 H Immature Gran # 0.18 H Absolute Neutrophils 16.58 H POC VBG pH POC VBG pCO2 at Temp POC VBG pO2 POC Venous O2 Sat Potassium POC BUN 27 H BUN Creatinine POC Creatinine 1.3 H Glucose POC Glucose 285 H Meds: Medications Acetaminophen (Acetaminophen 325 Mg Tablet) 650 mg PO Q6HP PRN; Protocol PRN Reason: Per Pain Protocol/Fever > 101 Albuterol/Ipratropium (Ipratropium/Albuterol 3 Ml Ampul.Neb) [id number] [facility] Last Admin: 12/07/22 11:54 Dose: 3 ml Alprazolam (Alprazolam 0.5 Mg Tablet) 0.[address] [facility] Atorvastatin Calcium (Atorvastatin 20 Mg Tablet) [address] [facility] Last Admin: 12/06/22 20:28 Dose: 20 mg Ceftriaxone Sodium (Ceftriaxone 1 Gm Vial) [address] [facility] Last Admin: 12/07/22 08:49 Dose: 1 gm Clopidogrel Bisulfate (Clopidogrel 75 Mg Tablet) [address] [facility] Last Admin: 12/07/22 09:13 Dose: Not Given Dextrose (Dextrose 50% 50 Ml Vial) 0 ml IV UD PRN PRN Reason: Per Sliding Scale Diagnostic Test (Pha) (Accu-Chek 1 Each Strip) [address] [facility] Last Admin: 12/07/22 11:20 Dose: 1 each Docusate Sodium (Docusate Sodium 100 Mg Capsule) [address] [facility] Last Admin: 12/07/22 09:12 Dose: Not Given Enoxaparin Sodium (Enoxaparin 40 Mg/0.4 Ml Syringe) [address] [facility] Last Admin: 12/07/22 08:49 Dose: 40 mg Glucose (Dextrose 31 Gm Oral.Susp) 15 gm PO PRN PRN PRN Reason: Hypoglycemia Azithromycin 500 mg/ Dextrose 250 mls @ 250 mls/hr IV DAILY [facility]; Protocol Stop: 12/08/22 09:59 Last Infusion: 12/07/22 10:04 Dose: Infused Insulin Human Lispro (Insulin Lispro 1 Unit/0.01 Ml Unit) [address] [facility]; Protocol Last Admin: 12/07/22 12:11 Dose: 12 units Lamotrigine (Lamotrigine 100 Mg Tablet) [address] [facility] Last Admin: 12/07/22 09:13 Dose: Not Given Levothyroxine Sodium (Levothyroxine 25 Mcg Tablet) [address] [facility] Last Admin: 12/07/22 09:14 Dose: Not Given Losartan Potassium (Losartan 50 Mg Tablet) [address] [facility] Methadone HCl (Methadone 5 Mg Tablet) [address] [facility] Last Admin: 12/07/22 09:13 Dose: Not Given Methylprednisolone Sodium Succinate (Methylprednisolone Sod Succ 40 Mg/Ml Vial) [address] [facility] Last Admin: 12/07/22 06:06 Dose: 40 mg Nicotine Polacrilex (Nicotine Polacrilex 2 Mg Gum) 2 mg CHEW/PARK Q4HP PRN PRN Reason: Withdrawl Symptoms Ondansetron HCl (Ondansetron 4 Mg/2 Ml Vial) 4 mg IV Q6HP PRN PRN Reason: Nausea And Vomiting Pregabalin (Pregabalin 75 Mg Capsule) [address] [facility] Last Admin: 12/07/22 09:13 Dose: Not Given Quetiapine Fumarate (Quetiapine 25 Mg Tablet) 25 mg PO [facility] Senna (Sennosides 1 Tablet) 2 tab PO [facility] Last Admin: 12/06/22 20:29 Dose: 2 tab Sodium Chloride (0.9 % Sodium Chloride 10 Ml Syringe) [address] [facility] Last Admin: 12/07/22 06:07 Dose: 10 ml A/P Narrative A/P Narrative: Assessment and plan *AECOPD (chronic obstructive pulmonary disease): - Methylprednisolone 40 mg IV q8 - DuoNeb - Azithromycin *Pneumonia: - PCT 0.06 - cultures pending - ceftriaxone and azithromycin *Bipolar disorder, current episode depressed, moderate: - continue quetiapine and lamotrigine but dose of quetiapine reduced due to oversedation *Type 2 diabetes mellitus with diabetic polyneuropathy: - SSI - continue pregabalin, dose reduced due to oversedation *Obesity: BMI 30 *FREDDIE: *Anxiety/depression: *HTN/hld: On losartan and statin *Tobacco abuse: Smoking cessation >3 minutes *ppx: Lovenox Time Spent With Patient Time: Total time spent is greater than 50% in coordination of care (as documented) at patient's floor/unit and/or counseling patient: QUALITY Stroke Symptom Onset Unknown: No VTE Deep Vein Thrombosis/Pulmonary Embolism Present on Admission: No
--- NOTE | 2022-12-07 15:17 | Discharge Summary ---
Discharge Provider Provider IMPORTANT FOLLOW-UP INFORMATION FOR PCP: Patient information: Note initiated : 12/07/22 at 3:15 pm Service Date, if different from initiated Date: [] Patient: Alex Clancy 72 y/o F admitted on 12/06/22 for shortness of breath. Chief Complaint: [] Date of admission: 12/06/22 19:30 Discharge date: 12/07/22 Primary care physician: Mabel Meyer Consults: 12/07/22 07:46 Consult to Physician [CONS] Routine Comment: Consulting Provider: Goldy Stanley Reason For Exam: Physician to Consult COURSE Hospital Course Hospital course: Interval history: Ms. Clancy is a 72 year old F with COPD on home O2, FREDDIE with CPAP, on chronically large doses of methadone, psychiatric illness, DM. She presented with SOB. Workup in the ER notable for WBC 19, wheezing, CXR with basilar infiltrate. Pt was given steroids, NBT, Abx. Admission was requested. Procalcitonin was 0.06. Dec 1, WBC improved to 11.3. Pt oversedated this morning. Doses of methadone, quetiapine, pregabalin, benzos all reduced. Patient left in the early afternoon AMA. Assessment and plan *AECOPD (chronic obstructive pulmonary disease): *Pneumonia: *Bipolar disorder, current episode depressed, moderate: - continue quetiapine and lamotrigine but dose of quetiapine reduced due to oversedation *Polypharmacy: *Type 2 diabetes mellitus with diabetic polyneuropathy: - continue pregabalin, dose reduced due to oversedation *Obesity: BMI 30 *FREDDIE: *Anxiety/depression: *HTN/hld: On losartan and statin Discharge diagnosis: Acute exacerbation COPD pneumonia polypharmacy Secondary discharge diagnosis: Bipolar disorder diabetes obesity obstructive sleep apnea anxiety depression hypertension hyperlipidemia tobacco abuse Time Spent with Patient Time attestation: Total time spent providing and/or coordinating discharge services: Time spent: Less than 30 minutes EXAM Constitutional Vitals: Temp Pulse Resp BP Pulse Ox O2 Del Method O2 Flow Rate 97.8 F 65 20 109/58 91 Room Air 3 12/07/22 12:00 12/07/22 14:19 12/07/22 14:19 12/07/22 12:00 12/07/22 14:19 12/07/22 14:19 12/07/22 12:00 Discharge Data Data Completed and Pending Labs on day of discharge: Labs from last 24 hours 12/07/22 12/07/22 12/06/22 05:54 05:54 15:00 WBC 11.3 H RBC 3.78 Hgb 11.2 Hct 35.5 MCV 93.9 MCH 29.6 MCHC 31.5 RDW 14.8 H Plt Count 209 MPV 9.9 Immature Gran % (Auto) 0.9 H Neut % (Auto) 84.4 H Lymph % (Auto) 10.8 L [place] % (Auto) 3.5 Eos % (Auto) 0 Baso % (Auto) 0.4 Lymph # (Auto) 1.23 L [place] # (Auto) 0.40 Eos # (Auto) 0 Baso # (Auto) 0.04 Immature Gran # 0.10 H Absolute Neutrophils 9.57 H Sodium 133 Potassium 5.4 H Chloride 97 Carbon Dioxide 24 Anion Gap 12.0 BUN 32 H Creatinine 1.3 H GFR Calculation 41 Glucose 342 H Calcium 9.4 Procalcitonin 0.06 Discharge Plan Patient/Caregiver Discharge Instructions Activity Restrictions/Additional Instructions: Reduced doses of sedating medication for oversedation noted in the hospital. Prescriptions: Continued Bydureon BCise 2 mg/0.85 mL auto-injector 2 mg subcut QWEEK Rx Instructions: Takes on 's metformin 500 mg tablet 1,500 mg PO 1700 Rx Instructions: 1 tab in am, 3 tabs at dinner telmisartan 40 mg tablet 20 mg PO 1700 naloxone 4 mg/actuation spray,non-aerosol 1 spray intranasal .COMPLEX Qty: 2 0RF Rx Instructions: 1 spray intranasally; administer 1 dose intranasally in one nostril. Call 911. If no response after 3-5 minutes, administer second dose ipratropium-albuterol 0.5 mg-3 mg(2.5 mg base)/3 mL solution for nebulization 3 ml inhalation Q6H PRN (Reason: shortness of breath or wheezing) Qty: 180 1RF fluticasone propionate [Flonase Allergy Relief] 50 mcg/actuation spray,suspension 1 spray intranasal BID Qty: 16 2RF Rx Instructions: administer into each nostril Breztri Aerosphere 160-9-4.8 mcg/actuation HFA aerosol inhaler 2 inh inhalation BID albuterol sulfate 90 mcg/actuation HFA aerosol inhaler 2 puff inhalation QID PRN (Reason: shortness of breath or wheezing) Qty: 8.5 3RF Rx Instructions: may use 10-15 minutes prior to activity clopidogrel 75 MG tablet 75 mg PO HS levothyroxine [Levoxyl] 25 MCG tablet 25 mcg PO DAILY atorvastatin 20 mg tablet 20 mg PO HS metformin 500 mg Tablet 500 mg PO QDAY Rx Instructions: 1 tab in the morning, 3 tabs at dinner cholecalciferol (vitamin D3) [Vitamin D3] 50 mcg (2,000 unit) Capsule 50 mcg PO QDAY lamotrigine [Lamictal] 200 mg Tablet 200 mg PO BID pregabalin 75 mg capsule See Rx Instructions PO BID Qty: 21 5RF Rx Instructions: 1 cap po qAM, 2 caps po HS orally twice a day; Changed quetiapine 25 mg tablet 25 mg PO QHS Qty: 1 0RF Rx Instructions: 100mg at HS and 2 tabs of 25mg at HS methadone 10 mg tablet 5 mg PO TID MDD 6 Qty: 42 0RF Rx Instructions: *MUST LAST 7 DAYS* P/U 02/20, Start 02/21 alprazolam 0.25 mg tablet 0.5 mg PO BID Qty: 1 0RF Follow Up Plan Follow up with: Mabel Meyer ARNP [Primary Care Provider] - Patient Disposition: Left Against Medical Advice Prognosis: Undetermined QUALITY VTE Deep Vein Thrombosis/Pulmonary Embolism Present on Admission: No
[2022-12-07] MEDS ORDERED: LOSARTAN 50 MG TABLET PO SCH (17:00)
[2022-12-07] MEDS ORDERED: QUEtiapine 25 MG TABLET PO SCH (21:00)
--- NOTE | 2022-12-08 06:44 | EKG ---
[facility] Test Date: 2022-12-06 Pat Name: Alex Clancy Department: [facility] Room: 114 Gender: Female [employer]: FREEMAN : 1950 Requested By: Lisset Jackson Order Number: [id number] Reading MD: Sebastian Patterson Measurements Intervals [place] Rate: 95 P: 71 [place]: 163 QRS: 39 QRSD: 113 T: 62 QT: 368 QTc: 463 Interpretive Statements Sinus rhythm Incomplete right bundle branch block Electronically Signed On 12-08-2022 6:44:08 PST by Sebastian Patterson [id number]
== END 2022-12-07 15:00 | disposition left against medical advice (07) | DRG 190 ==
LOC: ED 12:26 → MEDSUR 19:30
PROVIDERS: ADMIT Internal Medicine; ATTEND Internal Medicine

== ENCOUNTER 2025-05-23 15:58 | Inpatient (IN) ==
[2025-05-23] MEDS: NALOXONE 2 MG/2 ML SYRINGE IV ONE (16:17)
[2025-05-23] MEDS: ROCURONIUM 10 MG/ML ML IV ONE ×2 (16:45→17:45)
[2025-05-23] MEDS: ETOMIDATE 20 MG/10 ML VIAL IV ONE (16:45)
[2025-05-23 17:11] LABS: Basophils # (Auto) 0.11 K/mcL (0.00-0.30); Basophils % (Auto) 1.1 % (0.0-2.0); Eosinophils # (Auto) 0.38 K/mcL (0.00-0.70); Eosinophils % (Auto) 3.9 % (0.0-7.0); Hematocrit 34.6 % (34.1-44.9); Hemoglobin 11.2 g/dL (11.2-15.7); Lymphocytes # (Auto) 3.13 K/mcL (1.50-4.80); Lymphocytes % (Auto) 31.8 % (15.5-49.0); Mean Corpuscular HGB Conc 32.4 g/dL (31.0-36.0); Monocytes # (Auto) 0.76 K/mcL (0.10-0.90); Monocytes % (Auto) 7.7 % (1.0-12.0); Neutrophils % (Auto) 54.6 % (38.0-78.0); Platelet Count 224 K/mcL (140-440); RBC 3.63 M/mcL (3.59-5.38); WBC 9.8 K/mcL (4.5-11.0)
[2025-05-23] MEDS: MIDAZOLAM 5 MG/5 ML VIAL IV ONE ×3 (17:17→17:57)
[2025-05-23 17:26] LABS: ALT/SGPT 25 U/L (<40); AST/SGOT 20 U/L (<32); Albumin 4.2 gm/dL (3.2-5.2); Albumin/Globulin Ratio 2.0 (1.0-2.3); Alkaline Phosphatase 97 U/L (39-117); Anion Gap 12.0 (8.0-16.0); Bilirubin,Total 0.2 mg/dL (0.1-1.0); Blood Urea Nitrogen 21 mg/dL (8-23); Calcium 9.5 mg/dL (8.6-10.4); Carbon Dioxide 26 mmol/L (22-30); Chloride 103 mmol/L (96-108); Globulin 2.1 gm/dL (2.2-3.7); Glucose 134 mg/dL (70-105); Potassium 4.5 mmol/L (3.3-5.1); Sodium 141 mmol/L (133-145)
[2025-05-23 17:32] LABS: Alcohol,Blood < 0.010 gm/dL (<0.010)
[2025-05-23] MEDS: MIDAZOLAM HCL 50 MG in 0.9 % SODIUM CHLORIDE 90 ML IV SCH (17:40)
[2025-05-23] MEDS: IPRATROPIUM/ALBUTEROL 3 ML AMPUL.NEB NEB ONE (17:45)
[2025-05-23] MEDS: fentaNYL 2,500 MCG in 0.9 % SODIUM CHLORIDE 200 ML IV SCH (17:51)
[2025-05-23 18:49] LABS: Bilirubin,Urine Negative (Negative); Color,Urine YELLOW; Glucose,Urine (UA) Negative (Negative); Ketones,Urine Negative (Negative); Leukocyte Esterase,Urine Negative /uL (Negative); PH,Urine 6.0 (5.0-9.0); Protein,Urine Negative (Negative); Specific Gravity,Urine 1.010 (1.000-1.035); Urobilinogen,Urine Negative
[2025-05-23] MEDS: NOREPINEPHRINE 250 ML IV SCH (18:55)
[2025-05-23 19:04] LABS: Barbiturate Screen,Urine None detected; Benzodiazepines Screen,Urine Suspect positive; Fentanyl, Urine Screen None Detected; Opiate Screen,Urine None detected; Oxycodone, Urine Screen None detected; Phencyclidine Screen,Urine None detected
[2025-05-23] MEDS ORDERED: ONDANSETRON 4 MG/2 ML VIAL IV PRN (20:56)
[2025-05-23] MEDS ORDERED: POTASSIUM CHLORIDE 20 MEQ TABLET PO PRN ×2 (20:56)
[2025-05-23] MEDS ORDERED: DEXTROSE 31 GM ORAL.SUSP PO PRN (20:56)
[2025-05-23] MEDS ORDERED: DEXTROSE 50% 50 ML VIAL IV PRN (20:56)
[2025-05-23] MEDS ORDERED: ACETAMINOPHEN 160 MG/5 ML ORAL.SOL PT PRN (20:56)
[2025-05-23] MEDS ORDERED: POTASSIUM CHLORIDE 40 MEQ in DEXTROSE 5% IN WATER 500 ML IV PRN (20:56)
[2025-05-23] MEDS ORDERED: POLYETHYLENE GLYCOL 3350 17 GM PACKET PO PRN (20:56)
[2025-05-23] MEDS ORDERED: IPRATROPIUM/ALBUTEROL 3 ML AMPUL.NEB NEB PRN (20:56)
[2025-05-23] MEDS ORDERED: SENNOSIDES 1 TABLET PO PRN (20:56)
[2025-05-23] MEDS: 0.9 % SODIUM CHLORIDE 250 ML ONE (21:08)
[2025-05-23] MEDS: fentaNYL 50 ML ONE (21:08)
[2025-05-23] MEDS: 0.9 % SODIUM CHLORIDE 1,000 ML IV SCH (21:08)
[2025-05-23] MEDS: IPRATROPIUM/ALBUTEROL 3 ML AMPUL.NEB NEB SCH (21:17)
[2025-05-23] MEDS: DOCUSATE SODIUM 100 MG CAPSULE PO SCH (21:26)
[2025-05-23] MEDS: 0.9 % SODIUM CHLORIDE 10 ML SYRINGE IV SCH (21:27)
[2025-05-23] MEDS: CHLORHEXIDINE GLUCONATE 15 ML UDC SWABMOUTH SCH (21:29)
[2025-05-24] MEDS: INSULIN LISPRO 1 UNIT/0.01 ML UNIT SQ SCH (00:46)
[2025-05-24] MEDS: MIDAZOLAM HCL 50 MG/10 ML VIAL ONE (02:30)
[2025-05-24] MEDS: fentaNYL 100 MCG/2 ML VIAL IV PRN (03:26)
[2025-05-24] MEDS: 0.9 % SODIUM CHLORIDE 250 ML IV SCH (05:37)
[2025-05-24 07:11] LABS: Basophils # (Auto) 0.03 K/mcL (0.00-0.30); Basophils % (Auto) 0.3 % (0.0-2.0); Eosinophils # (Auto) 0 K/mcL (0.00-0.70); Eosinophils % (Auto) 0 % (0.0-7.0); Hematocrit 30.3 % (34.1-44.9); Hemoglobin 9.8 g/dL (11.2-15.7); Lymphocytes # (Auto) 0.78 K/mcL (1.50-4.80); Lymphocytes % (Auto) 7.7 % (15.5-49.0); Mean Corpuscular HGB Conc 32.3 g/dL (31.0-36.0); Monocytes # (Auto) 0.36 K/mcL (0.10-0.90); Monocytes % (Auto) 3.6 % (1.0-12.0); Neutrophils % (Auto) 87.7 % (38.0-78.0); Platelet Count 202 K/mcL (140-440); RBC 3.16 M/mcL (3.59-5.38); WBC 10.1 K/mcL (4.5-11.0)
[2025-05-24 07:37] LABS: ALT/SGPT 23 U/L (<40); AST/SGOT 20 U/L (<32); Albumin 3.5 gm/dL (3.2-5.2); Albumin/Globulin Ratio 2.1 (1.0-2.3); Alkaline Phosphatase 82 U/L (39-117); Anion Gap 12.0 (8.0-16.0); Bilirubin,Direct < 0.2 mg/dL (0-0.3); Bilirubin,Total < 0.2 mg/dL (0.1-1.0); Blood Urea Nitrogen 26 mg/dL (8-23); Calcium 8.3 mg/dL (8.6-10.4); Carbon Dioxide 21 mmol/L (22-30); Chloride 105 mmol/L (96-108); Globulin 1.7 gm/dL (2.2-3.7); Glucose 288 mg/dL (70-105); Phosphorous 3.0 mg/dL (2.5-4.5); Potassium 5.1 mmol/L (3.3-5.1); Sodium 138 mmol/L (133-145); Triglycerides 49 mg/dL (<150); Uric Acid 4.4 mg/dL (2.5-8.0)
[2025-05-24] MEDS: ENOXAPARIN 40 MG/0.4 ML SYRINGE SQ SCH (08:23)
[2025-05-24] MEDS: PANTOPRAZOLE 40 MG VIAL IV SCH (08:23)
[2025-05-24] MEDS: MAGNESIUM SULFATE 2 GM/50 ML BAG IV PRN (09:24)
[2025-05-24] MEDS: HALOPERIDOL LACTATE 5 MG/ML VIAL IV ONE ×2 (10:59→11:21)
[2025-05-24] MEDS: HALOPERIDOL LACTATE 5 MG/ML VIAL ONE (10:59)
[2025-05-24] MEDS: LACTATED RINGERS 250 ML IV ONE ×2 (11:47→11:56)
[2025-05-24] MEDS: DEXMEDETOMIDINE 400 MCG in PREMIX 1 BAG IV PRN (11:48)
[2025-05-24] MEDS: DEXMEDETOMIDINE 100 ML IV ONE (11:56)
[2025-05-24] MEDS ORDERED: VANCOMYCIN PER PHARMACY IV SCH (20:00)
[2025-05-24] MEDS: VANCOMYCIN 1,500 MG in 0.9 % SODIUM CHLORIDE 500 ML IV ONE (21:33)
[2025-05-25] MEDS ORDERED: VANCOMYCIN 1,500 MG in 0.9 % SODIUM CHLORIDE 500 ML IV SCH (09:00)
[2025-05-25] MEDS: Budesonide-Glycopyrrolate-Formoterol [Breztri Aerosphere] Inhaler INH SCH (09:22)
[2025-05-25 09:27] LABS: ALT/SGPT 22 U/L (<40); AST/SGOT 24 U/L (<32); Albumin 3.6 gm/dL (3.2-5.2); Albumin/Globulin Ratio 1.9 (1.0-2.3); Alkaline Phosphatase 96 U/L (39-117); Anion Gap 11.0 (8.0-16.0); Bilirubin,Direct < 0.2 mg/dL (0-0.3); Bilirubin,Total 0.3 mg/dL (0.1-1.0); Blood Urea Nitrogen 19 mg/dL (8-23); Calcium 9.0 mg/dL (8.6-10.4); Carbon Dioxide 22 mmol/L (22-30); Chloride 107 mmol/L (96-108); Globulin 1.9 gm/dL (2.2-3.7); Glucose 135 mg/dL (70-105); Phosphorous 3.1 mg/dL (2.5-4.5); Potassium 4.5 mmol/L (3.3-5.1); Sodium 140 mmol/L (133-145); Triglycerides 139 mg/dL (<150); Uric Acid 3.3 mg/dL (2.5-8.0)
[2025-05-25] MEDS: LEVOTHYROXINE 25 MCG TABLET PO SCH (09:30)
[2025-05-25] MEDS: METHADONE 5 MG TABLET PO SCH (09:30)
[2025-05-25 10:08] LABS: Estimated Average Glucose(eAG) 200 mg/dL; Hemoglobin A1C 8.6 % Hgb (4.0-6.0)
[2025-05-25] MEDS: NICOTINE 21 MG PATCH TOPICAL SCH (19:40)
[2025-05-25] MEDS: ATORVASTATIN 20 MG TABLET PO SCH (20:11)
[2025-05-26] MEDS: PANTOPRAZOLE 40 MG TABLET PO SCH (07:20)
[2025-05-26 11:54] VITALS: TEMP 97.8; O2SAT 95
[2025-05-26] MEDS ORDERED: LOSARTAN 50 MG TABLET PO SCH (17:00)
== END 2025-05-26 14:20 | disposition home or self-care (01) | DRG 91 ==
LOC: ED 15:58 → ICU 20:22
PROVIDERS: ADMIT Internal Medicine; ATTEND Internal Medicine